=== PATIENT | male | born 1960 | race Caucasian/White ===

== ENCOUNTER 2021-01-19 08:49 | Inpatient (IN) ==
[2021-01-19] MEDS ORDERED: CeFAZolin Syr 2,000MG/20 ML 2,000 MG/20 ML SYRINGE IVPB ONE (09:21)
[2021-01-19] MEDS ORDERED: Ringers Solution, Lactated 1,000 ML IVC SCH (09:30)
[2021-01-19] MEDS ORDERED: Vancomycin 1,250 MG/262.5 ML IV.SOLN IVPB ONE (10:00)
[2021-01-19] MEDS ORDERED: *HR* Heparin 5,000 UNIT/ML VIAL ONE ×3 (10:15→18:43)
[2021-01-19] MEDS ORDERED: Vancomycin 1,000 MG, Sodium Chloride IRRigation 1,000 ML IR ONE (10:25)
[2021-01-19] MEDS ORDERED: *HR* FentaNYL (PF) 100 MCG/2 ML VIAL IVP PRN (12:09)
[2021-01-19] MEDS ORDERED: *HR* FentaNYL (PF) 100 MCG/2 ML VIAL ONE ×2 (12:53→16:47)
[2021-01-19] MEDS ORDERED: *HR* Propofol 200 MG/20 ML VIAL IVP ONE (12:53)
[2021-01-19] MEDS ORDERED: Lidocaine HCL 4 ML Topical Solution (Laryng-O-Jet Kit Sterile Pak) TP ONE (12:53)
[2021-01-19] MEDS ORDERED: *HR* Rocuronium Bromide 50 MG/5 ML VIAL ONE ×3 (12:53→18:38)
[2021-01-19] MEDS ORDERED: *HR* Midazolam HCl 2 MG/2 ML VIAL ONE (12:53)
[2021-01-19] MEDS ORDERED: Ondansetron 4 MG/2 ML VIAL ONE (12:53)
[2021-01-19] MEDS ORDERED: Heparin 1,000 UNITS/500 mL 500 ML ONE (14:33)
[2021-01-19] MEDS ORDERED: Bupivacaine-MPF 0.25% 10 ML VIAL ONE (14:33)
[2021-01-19] MEDS ORDERED: *HR* Labetalol 20 MG/4 ML SYRINGE IVP ONE (18:17)
[2021-01-19] MEDS ORDERED: EPHEDrine 50 MG/ML VIAL ONE (18:25)
[2021-01-19] MEDS ORDERED: Naloxone 0.4 MG/ML INJ IVP PRN ×2 (19:08→20:50)
[2021-01-19] MEDS ORDERED: Albuterol 2.5 MG/3 ML NEBULIZER IH PRN (19:08)
[2021-01-19] MEDS ORDERED: Nitroglycerin 0.4 MG TAB.SUBL SL PRN (19:08)
[2021-01-19] MEDS ORDERED: Ondansetron 4 MG/2 ML VIAL IVP PRN ×2 (19:08→20:50)
[2021-01-19] MEDS ORDERED: *HR* HYDROMORPHONE 2 MG/ML VIAL ONE (19:15)
[2021-01-19] MEDS ORDERED: Sugammadex Sodium 200 MG/2 ML VIAL IV ONE (19:40)
[2021-01-19] MEDS: *HR* HYDROmorphone (PF) 1 MG/ML SYRINGE IVP PRN ×4 (20:00→20:25)
[2021-01-19] MEDS ORDERED: Acetaminophen 325 MG TABLET PO PRN (20:50)
[2021-01-19] MEDS ORDERED: *HR* OxyCODONE Immed Rel 5 MG TABLET PO PRN (20:50)
[2021-01-19] MEDS ORDERED: 0.9 % Sodium Chloride 1,000 ML IVC SCH (20:50)
[2021-01-19] MEDS: Gabapentin 300 MG CAPSULE PO SCH (21:23)
[2021-01-19] MEDS: CeFAZolin 2 GM/120 ML BAG IVPB SCH (23:44)
[2021-01-19] MEDS: *HR* Metoprolol 5 MG/5 ML VIAL IVP SCH (23:45)
[2021-01-20] MEDS ORDERED: Vancomycin 1,250 MG/262.5 ML IV.SOLN IVPB ONE (01:00)
[2021-01-20] MEDS: *HR* HYDROcodone/Acet 5/325 mg TABLET PO PRN ×2 (03:45→11:26)
[2021-01-20 04:47] LABS: Basophils % 0.3 %; Hematocrit 33.9 % (37.5-50.1); Hemoglobin 11.4 g/dL (12.9-16.9); Immature Granulocytes % 0.4 % (0-4); Lymphocytes # 1.4 K/mcL (0.6-4.6); Lymphocytes % 12.8 %; Mean Corpuscular HGB Conc 33.6 g/dL (31.6-35.5); Mean Corpuscular Hemoglobin 32.8 pg (28.0-33.3); Mean Corpuscular Volume 97.4 fL (83.0-100.0); Mean Platelet Volume 9.1 fL (9.4-12.4); Monocytes # 0.8 K/mcL (0.0-1.3); Monocytes % 7.5 %; Neutrophils # 8.5 K/mcL (1.6-8.9); Platelet Count 326 K/mcL (140-400); Red Blood Count 3.48 M/mcL (4.19-5.50); Red Cell Distribution Width 13.6 % (11.5-14.5); White Blood Count 10.7 K/mcL (4.3-11.1)
[2021-01-20 05:00] LABS: BUN/Creatinine Ratio 17 (6-26); Blood Urea Nitrogen 19 mg/dL (6-20); Calcium 8.3 mg/dL (8.6-10.3); Carbon Dioxide 25 mEq/L (23-29); Chloride 101 mEq/L (98-107); Glucose 151 mg/dL (70-105); Osmolality,Calculated 279 (280-300); Potassium 4.6 mEq/L (3.5-5.1); Sodium 132 mEq/L (136-145); eGFR For African Americans > 60 (> 60); eGFR For Non-African Americans > 60 (> 60)
[2021-01-20] MEDS ORDERED: *HR* Heparin 5,000 UNIT/ML VIAL SQ SCH ×2 (06:00)
[2021-01-20] MEDS: CeFAZolin 2 GM/120 ML BAG IVPB SCH (06:17)
[2021-01-20] MEDS: *HR* Metoprolol 5 MG/5 ML VIAL IVP SCH ×2 (06:18→11:27)
[2021-01-20] MEDS: Gabapentin 300 MG CAPSULE PO SCH (07:59)
[2021-01-20 08:11] VITALS: O2SAT 97
[2021-01-20] MEDS ORDERED: lisinopriL 10 MG TABLET PO SCH (09:00)
[2021-01-20 11:29] VITALS: BP 141/82; PULSE 99; TEMP 97.6
== END 2021-01-20 12:52 | disposition home or self-care (01) | DRG 181 ==
LOC: SAMDAY 08:49 → 2NNU 21:11
PROVIDERS: ADMIT Surgery; ATTEND Surgery

== ENCOUNTER 2021-07-06 11:14 | Inpatient (IN) ==
[2021-07-06] MEDS ORDERED: CeFAZolin Syr 2,000MG/20 ML 2,000 MG/20 ML SYRINGE IVPB ONE (11:33)
[2021-07-06] MEDS ORDERED: Vancomycin 1,250 MG/262.5 ML IV.SOLN IVPB ONE ×2 (11:33→23:30)
[2021-07-06] MEDS ORDERED: Ringers Solution, Lactated 1,000 ML IVC SCH (11:45)
[2021-07-06] MEDS ORDERED: Ondansetron 4 MG/2 ML VIAL ONE ×2 (11:55→17:39)
[2021-07-06] MEDS ORDERED: *HR* Propofol 200 MG/20 ML VIAL IVP ONE ×2 (11:55→12:20)
[2021-07-06] MEDS ORDERED: Bupivacaine-MPF 0.25% 10 ML VIAL ONE (11:55)
[2021-07-06] MEDS ORDERED: Heparin 1,000 UNITS/500 mL 500 ML ONE (11:55)
[2021-07-06] MEDS ORDERED: Lidocaine -MPF 2% 5 ML VIAL ONE ×2 (11:55→15:08)
[2021-07-06] MEDS ORDERED: *HR* Rocuronium Bromide 50 MG/5 ML VIAL ONE (11:55)
[2021-07-06] MEDS ORDERED: Lidocaine HCL 4 ML Topical Solution (Laryng-O-Jet Kit Sterile Pak) TP ONE (11:55)
[2021-07-06] MEDS ORDERED: *HR* OxyCODONE Immed Rel 5 MG TABLET PO PRN ×2 (12:05→18:40)
[2021-07-06] MEDS ORDERED: Albuterol 2.5 MG/3 ML NEBULIZER IH PRN (12:05)
[2021-07-06] MEDS ORDERED: *HR* HYDROmorphone PF 0.5 MG/0.5 ML SYRINGE IVP PRN (12:05)
[2021-07-06] MEDS ORDERED: Acetaminophen IV 1,000 MG/100 ML BAG IVPB ONE (12:05)
[2021-07-06] MEDS ORDERED: Famotidine 20 MG/2 ML VIAL IVP ONE (12:05)
[2021-07-06] MEDS ORDERED: Ondansetron 4 MG/2 ML VIAL IVP PRN ×2 (12:05→18:40)
[2021-07-06] MEDS ORDERED: *HR* FentaNYL (PF) 100 MCG/2 ML VIAL ONE (12:12)
[2021-07-06] MEDS ORDERED: *HR* Phenylephrine 10 MG/ML VIAL ONE (12:13)
[2021-07-06] MEDS ORDERED: Heparin 1,000 UNITS/500 mL 0 ML ONE (12:21)
[2021-07-06] MEDS ORDERED: *HR* Vasopressin 20 UNIT/ML VIAL ONE (12:22)
[2021-07-06] MEDS ORDERED: EPHEDrine 50 MG/ML VIAL ONE (12:33)
[2021-07-06] MEDS ORDERED: Vancomycin 1,000 MG, Sodium Chloride IRRigation 1,000 ML IR ONE (13:00)
[2021-07-06] MEDS ORDERED: *HR* Heparin 5,000 UNIT/ML VIAL ONE (13:36)
[2021-07-06] MEDS ORDERED: *HR* HYDROMORPHONE 2 MG/ML VIAL ONE (14:50)
[2021-07-06] MEDS ORDERED: *HR* Labetalol 20 MG/4 ML SYRINGE IVP ONE (17:37)
[2021-07-06] MEDS ORDERED: *HR* HYDROmorphone (PF) 1 MG/ML SYRINGE ONE (17:49)
[2021-07-06] MEDS ORDERED: *HR* Heparin 5,000 UNIT/ML VIAL SQ SCH (18:00)
[2021-07-06] MEDS ORDERED: Naloxone 0.4 MG/ML INJ IVP PRN (18:40)
[2021-07-06] MEDS ORDERED: Acetaminophen 325 MG TABLET PO PRN (18:40)
[2021-07-06] MEDS ORDERED: *HR* Labetalol 20 MG/4 ML SYRINGE IVP PRN (18:40)
[2021-07-06] MEDS ORDERED: 0.9 % Sodium Chloride 1,000 ML IVC SCH (18:40)
[2021-07-06] MEDS ORDERED: *HR* HYDROcodone/Acet 5/325 mg TABLET PO PRN (18:40)
[2021-07-06] MEDS: Aspirin Enteric Coated 81 MG Tablet PO SCH (18:58)
[2021-07-06] MEDS: *HR* Metoprolol 5 MG/5 ML VIAL IVP SCH ×2 (18:58→23:26)
[2021-07-06] MEDS: CeFAZolin 2 GM/100 ML BAG IVPB SCH (22:03)
[2021-07-07 02:16] LABS: Basophils # 0.1 K/mcL (0.0-0.2); Basophils % 0.6 %; Hematocrit 33.9 % (37.5-50.1); Immature Granulocytes % 0.5 % (0-4); Lymphocytes % 18.1 %; Mean Corpuscular HGB Conc 32.4 g/dL (31.6-35.5); Mean Corpuscular Hemoglobin 30.6 pg (28.0-33.3); Mean Corpuscular Volume 94.4 fL (83.0-100.0); Mean Platelet Volume 9.2 fL (9.4-12.4); Monocytes # 0.8 K/mcL (0.0-1.3); Monocytes % 7.4 %; Neutrophils # 8.1 K/mcL (1.6-8.9); Platelet Count 313 K/mcL (140-400); Red Blood Count 3.59 M/mcL (4.19-5.50); Red Cell Distribution Width 13.2 % (11.5-14.5); Segmented Neutrophils % 73.4 %; White Blood Count 11.1 K/mcL (4.3-11.1)
[2021-07-07 02:36] LABS: Calcium 8.3 mg/dL (8.6-10.3); Potassium 5.9 mEq/L (3.5-5.1)
[2021-07-07 02:54] VITALS: TEMP 98.3
[2021-07-07] MEDS: CeFAZolin 2 GM/100 ML BAG IVPB SCH (05:36)
[2021-07-07] MEDS: *HR* Metoprolol 5 MG/5 ML VIAL IVP SCH (05:36)
[2021-07-07] MEDS ORDERED: *HR* Heparin 5,000 UNIT/ML VIAL SQ SCH (06:00)
[2021-07-07 07:47] VITALS: BP 146/61; O2SAT 96
[2021-07-07] MEDS: Aspirin Enteric Coated 81 MG Tablet PO SCH (08:32)
[2021-07-07] MEDS ORDERED: lisinopriL 10 MG TABLET PO SCH (09:00)
[2021-07-07 09:42] VITALS: PULSE 90
== END 2021-07-07 11:20 | disposition home or self-care (01) | DRG 181 ==
LOC: SAMDAY 11:14 → 2NNU 18:40
PROVIDERS: ADMIT Surgery; ATTEND Surgery